=== PATIENT | male | born 1955 | race American Indian/Alaskan Native ===

== ENCOUNTER 2017-06-12 16:45 | Emergency (ER) | payer OTHER ==
[2017-06-12 17:31] LABS: Basophils % (Auto) 0.4 % (0.0-1.8); Eosinophils # (Auto) 0.4 K/mm3 (0.0-0.4); Hemoglobin 14.3 gm/dl (11.8-15.2); Lymphocytes # (Auto) 2.1 K/mm3 (1.2-5.4); Lymphocytes % (Auto) 29.3 % (13.4-35.0); Mean Corpuscular HGB Conc 33 % (32-34); Mean Corpuscular Hemoglobin 29 pg (28-32); Mean Corpuscular Volume 88 fl (84-94); Monocytes # (Auto) 0.3 K/mm3 (0.0-0.8); Monocytes % (Auto) 4.5 % (0.0-7.3); Platelet Count 251 K/mm3 (140-440); Red Blood Count 4.99 M/mm3 (3.65-5.03)
[2017-06-12 17:38] LABS: INR 0.88 (0.87-1.13)
[2017-06-12 17:39] LABS: Partial Thromboplastin Time 25.8 Sec. (24.2-36.6)
[2017-06-12 19:47] LABS: Blood Urea Nitrogen TNR mg/dL (9-20)
[2017-06-12 19:48] LABS: BUN/Creatinine Ratio TNR; Calcium TNR mg/dL (8.4-10.2); Hemolysis Index TNR
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
--- NOTE | 2017-06-12 20:34 | Cat Scan Report ---
FINAL REPORT EXAM: CT CHEST W CON HISTORY: hemoptysis TECHNIQUE: Standard enhanced CT of the chest at 2.5 mm axial increments. Coronal and sagittal reconstruction was also obtained. Contrast: 100 ml Omnipaque 350 given IV PRIORS: None. FINDINGS: The lung parenchyma are expanded and clear with no evidence for parenchymal nodules, infiltrates, vascular congestion, pleural effusion, or pneumothorax. There is no evidence for mediastinal, hilar, or axillary adenopathy. The esophagus is collapsed. The trachea is midline. Cardiovascular structures are within normal limits. Cardiac size and aorta are normal. Images through the lung bases include upper abdomen which show no abnormality of the visualized abdominal viscera. Bony structures show no focal abnormalities. No evidence for bony fracture is seen. IMPRESSION: No acute abnormality identified in the chest. Negative exam.
[2017-06-13 02:49] VITALS: BP 123/74
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
== END 2017-06-13 04:13 | disposition home or self-care (01) ==
LOC: ED 16:45
DX: S16.1XXA Strain of muscle, fascia and tendon at neck level, initial encounter (principal); R04.0 Epistaxis; R05 Cough; R07.89 Other chest pain; F17.200 Nicotine dependence, unspecified, uncomplicated; V87.7XXA Person injured in collision between other specified motor vehicles (traffic), initial encounter; Y93.89 Activity, other specified; Y99.8 Other external cause status; Y92.410 Unspecified street and highway as the place of occurrence of the external cause
CPT/HCPCS: 36415; 71260; 72125; 80048; 85025; 85610; 85730; 99284; Q9967